=== PATIENT | female | born 1985 | race Caucasian/White ===

== ENCOUNTER 2018-12-17 14:16 | Emergency (ER) | payer OTHER ==
--- OUTSIDE RECORDS SUMMARY | 2018-12-17 14:41 | XMS REPORT | Continuity of Care Document ---
:1985 External Reference #:[id number] Author Name ROSA Mauro Address [address] [place] [address] Care Team Providers Name Role Phone Desiree Montile M.D. Care Team Information Lead Radiation Therapist [phone] Problems Active Problems Provider Date Difficulty speaking Rosa Salazar M.D. Onset: 10/20/2018 Mild persistent asthma Rosa Salazar M.D. Onset: 10/20/2018 Allergic rhinitis Rosa Salazar M.D. Onset: 10/20/2018 Social History Type Date Description Comments Sex Unknown Tobacco Use Start: Unknown End: Quit Unknown Tobacco Use Start: Unknown Heavy tobacco smoker (more than 10 cigarettes/day) Tobacco Use Start: Unknown Never Smoked Cigars Tobacco Use Start: Unknown Never Smoked A Pipe Tobacco Use Start: Unknown Never Used Smokeless Tobacco ETOH Use Rarely consumes alcohol ETOH Use Rarely consumes beer ETOH Use Rarely consumes wine ETOH Use Rarely consumes liquor Tobacco Use Start: Unknown End: Patient is a former smoker Unknown Recreational Drug Use Never Used Drugs Allergies, Adverse Reactions, Alerts Active Allergies Reaction Severity Comments Date Tegretol Urticaria 10/19/2018 Depakote Urticaria 10/19/2018 Phenytoin Urticaria 10/19/2018 Bee Stings Urticaria, Swelling of the general area 10/19/2018 Flexerol nausea 10/20/2018 Medications Active Medications SIG Qnty Indications Ordering Date Provider Levocetirizine 1 by mouth every 30tabs J30.9 Rosa Davis 10/20/2018 Dihydrochloride day Nacho Salazar 5mg Tablets Advair HFA inhale 2 puffs 12gm J45.30 [facility] 10/20/2018 45-21mcg/Act twice a day with Nacho Salazar Aerosol spacer. rinse mouth after use. Aerochamber Plus Son-Vu use as directed 1units J45.30 Rosa Davis 10/20/2018 Nacho Salazar Misc Montelukast Sodium Take One Tablet Unknown 10mg By Mouth AT Tablets Bedtime Ibuprofen prn Unknown 800mg Tablets Ventolin HFA 2 every 4 hours Unknown 108(90Base) as needed mcg/Act Aerosol Medications Administered in Office Medication SIG Qnty Indications Ordering Provider Date Injection Allergy Injection 11/10/2018 Injection Injection Allergy Injection 11/03/2018 Injection Immunizations Description No Information Available Vital Signs Date Vital Result Comment 11/10/2018 2:08pm Height 64 inches 5'4" Weight 265.25 lb Weight 120.317 kg Respiratory Rate 20 /min Heart Rate 84 /min O2 % BldC Oximetry 97 % BP Systolic 121 mmHg BP Diastolic 77 mmHg Asthma Control Test 23 Fractional Exhaled Nitric Oxide 11 BMI (Body Mass Index) 45.5 kg/m2 10/20/2018 9:33am Height 64 inches 5'4" Weight 266.00 lb Weight 120.658 kg Respiratory Rate 20 /min Heart Rate 76 /min O2 % BldC Oximetry 96 % BP Systolic 122 mmHg BP Diastolic 72 mmHg Asthma Control Test 23 Fractional Exhaled Nitric Oxide 13 BMI (Body Mass Index) 45.7 kg/m2 Results Description No Information Available Procedures Date Code Description Status 11/10/2018 43223 Injection Completed 11/10/2018 70704 Nitric Oxide Gas Determination Completed 11/10/2018 62690 Pre PFT Completed 11/03/2018 83665 Injection Completed 10/27/2018 37229 Extract 1-10 Completed 10/20/2018 04401 Nitric Oxide Gas Determination Completed 10/20/2018 09738 Skin Test Scratch # Of Units ____ Completed 10/20/2018 79422 Pulmonary Function Test Completed Medical Devices Description No Information Available Encounters Type Date Location Provider Dx Diagnosis Office Visit 11/10/2018 [facility] Alanna Mauro Encounter for 1:40p [employer] immunization J30.1 Allergic rhinitis due to pollen J30.2 Other seasonal allergic rhinitis J30.81 Allergic rhinitis due to animal (cat) (dog) hair and dander J30.89 Other allergic rhinitis J45.30 Mild persistent asthma, uncomplicated Office Visit 10/20/2018 9:40a [place] [facility] Rosa Davis J30.9 Allergic rhinitisMartin M.D. unspecified J45.30 Mild persistent asthma, uncomplicated R49.0 Dysphonia Assessments Date Code Description Provider 11/10/2018 J30.1 Allergic rhinitis due to pollen Rosa Salazar M.D. 11/10/2018 Z23 Encounter for immunization Etta Uldrich, [employer] 11/10/2018 J30.1 Allergic rhinitis due to pollen Etta Uldrich, [employer] 11/10/2018 J30.2 Other seasonal allergic rhinitis Etta Uldrich, [employer] 11/10/2018 J30.1 Allergic rhinitis due to pollen Allergy Injection 11/10/2018 J30.81 Allergic rhinitis due to animal (cat) (dog) Etta Uldrich, [employer] hair and dander 11/10/2018 J30.2 Other seasonal allergic rhinitis Rosa Salazar M.D. 11/10/2018 J30.89 Other allergic rhinitis Etta Uldrich, [employer] 11/10/2018 J30.2 Other seasonal allergic rhinitis Allergy Injection 11/10/2018 J45.30 Mild persistent asthma, uncomplicated Etta Uldrich, [employer] -C 11/10/2018 J30.81 Allergic rhinitis due to animal (cat) (dog) Rosa Salazar M.D. hair and dander 11/10/2018 J30.81 Allergic rhinitis due to animal (cat) (dog) Allergy Injection hair and dander 11/10/2018 J30.89 Other allergic rhinitis Rosa Salazar M.D. 11/10/2018 J30.89 Other allergic rhinitis Allergy Injection 11/03/2018 J30.1 Allergic rhinitis due to pollen Rosa Salazar M.D. 11/03/2018 J30.1 Allergic rhinitis due to pollen Allergy Injection 11/03/2018 J30.2 Other seasonal allergic rhinitis Rosa Salazar M.D. 11/03/2018 J30.2 Other seasonal allergic rhinitis Allergy Injection 11/03/2018 J30.81 Allergic rhinitis due to animal (cat) (dog) Rosa Salazar M.D. hair and dander 11/03/2018 J30.81 Allergic rhinitis due to animal (cat) (dog) Allergy Injection hair and dander 11/03/2018 J30.89 Other allergic rhinitis Rosa Salazar M.D. 11/03/2018 J30.89 Other allergic rhinitis Allergy Injection 10/27/2018 J30.1 Allergic rhinitis due to pollen Rosa Salazar M.D. 10/27/2018 J30.1 Allergic rhinitis due to pollen Lab 10/27/2018 J30.2 Other seasonal allergic rhinitis Rosa Salazar M.D. 10/27/2018 J30.2 Other seasonal allergic rhinitis Lab 10/27/2018 J30.81 Allergic rhinitis due to animal (cat) (dog) Rosa Salazar M.D. hair and dander 10/27/2018 J30.81 Allergic rhinitis due to animal (cat) (dog) Lab hair and dander 10/27/2018 J30.89 Other allergic rhinitis Rosa Salazar M.D. 10/27/2018 J30.89 Other allergic rhinitis Lab 10/20/2018 J30.9 Allergic rhinitis, unspecified Rosa Salazar M.D. 10/20/2018 J45.30 Mild persistent asthma, uncomplicated Rosa Salazar M.D. 10/20/2018 R49.0 Dysphonia Rosa Salazar M.D. Plan of Treatment Future Appointment(s):03/16/2019 1:20 pm - ROSA Mauro at [facility]12/29/2018 1:30 pm - Allergy Injection at [facility]12/22/2018 1: 30 pm - Allergy Injection at [facility]12/15/2018 1:30 pm - Allergy Injection at [facility]12/08/2018 1:30 pm - Allergy Injection at [facility]12/01/2018 1:30 pm - Allergy Injection at [facility]11/24/2018 1: 30 pm - Allergy Injection at [facility]11/17/2018 1:30 pm - Allergy Injection at [facility]11/10/2018 - ANURAG Mauro-CZ23 Encounter for jurpgpyjdodrR13.1 Allergic rhinitis due to gfkgthT27.2 Other seasonal allergic anbobnkcJ57.81 Allergic rhinitis due to animal (cat) (dog) hair and eewyvsT08.89 Other allergic crwgbiwwJ10.30 Mild persistent asthma, uncomplicatedFollow up:4 monthsRecommendations:Continue all medications as prescribed.Refrain from wearing perfumes/scented colognes while visitingour office. Continue the Advair 2 puffs twice a day Continue the Montelukast 1 daily Try the Pazeo for itchy red eyes 1 drop daily Continue the Levocetirizine 1 daily Continue the Ventolin 2 puffs every 4 hours as needed for cough, shortness of breath, cough, wheezing or chests tightness Continue the allergy shots Discussed the three ways in which allergies are managed: (1) avoidance measures; (2) medications; (3) allergy immunotherapy. Discussed environmental controls. -Dust mite control barriers are recommended for mattress and pillows. Make sure the product specifies a pore size rating of 2-5 microns. Bigger and unspecified pore sizes may not be effective. -Wash all bedding in hot water once weekly. -Keep bedroom humidity below 50%. Dust mites thrive well in high humidity. Hold antihistamines for 72 hours prior to testing. Functional Status Description No Information Available Mental Status Description No Information Available Referrals Description No Information Available
--- OUTSIDE RECORDS SUMMARY | 2018-12-17 14:41 | XMS REPORT | Continuity of Care Document ---
:1985 External Reference #:[id number] Author Name Rosa Salazar M.D. Address [address] [place] [address] Care Team Providers Name Role Phone Desiree Montiel M.D. Care Team Information Business Development Manager [phone] Problems Active Problems Provider Date Difficulty speaking [...] Advair HFA inhale 2 puffs 12gm J45.30 Rosa M 10/20/2018 45-21mcg/Act twice a day with Nacho Salazar Aerosol spacer. rinse mouth after use. Aerochamber Plus Son-Vu use as directed 1units J45.30 Rosa Davis 10/20/2018 Ncaho Salazar Misc Montelukast Sodium Take One Tablet Unknown 10mg By Mouth AT Tablets Bedtime Advair Diskus Unknown 100-50mcg/Dose Aerosol Ibuprofen prn Unknown 800mg Tablets Ventolin HFA 2 every 4 hours Unknown 108(90Base) as needed mcg/Act Aerosol Immunizations Description No Information Available Vital Signs Date Vital Result Comment 10/20/2018 9:33am Height 64 inches 5'4" Weight 586.44 lb Weight 266.008 kg Respiratory Rate 20 /min Heart Rate 76 /min O2 % BldC Oximetry 96 % BP Systolic 122 mmHg BP Diastolic 72 mmHg Asthma Control Test 23 Fractional Exhaled Nitric Oxide 13 BMI (Body Mass Index) 100.7 kg/m2 Results Description No Information Available Procedures Date Code Description Status 10/20/2018 77160 Nitric Oxide Gas Determination Completed 10/20/2018 54552 Skin Test Scratch # Of Units ____ Completed 10/20/2018 86667 Pulmonary Function Test Completed Medical Devices Description No Information Available Encounters Type Date Location Provider Dx Diagnosis Office Visit 10/20/2018 [facility] Rosa Davis J30.9 Allergic rhinitis, 9:40a Nacho Salazar unspecified J45.30 Mild persistent asthma, uncomplicated R49.0 Dysphonia Assessments Date Code Description Provider 10/20/2018 Shayy30.9 Allergic rhinitis, unspecified Rosa Salazar M.D. 10/20/2018 J45.30 Mild persistent asthma, uncomplicated Rosa Salazar M.D. 10/20/2018 R49.0 Dysphonia Rosa Salazar M.D. Plan of Treatment Future Appointment(s):11/10/2018 1:45 pm - Allergy Injection at [facility]11/10/2018 1:40 pm - ROSA Mauro at [facility]11/03/2018 1:30 pm - Allergy Injection at [facility]10/20/2018 - Rosa Salazar M.D.J30.9 Allergic rhinitis, unspecifiedNew Medication:Levocetirizine Dihydrochloride 5 mg - 1 by mouth every dayRecommendations:Prick Skin Test - Seasonal and Environmental Environmental controls reviewed risks/benefits of IT discussed - pt would like to start recommend Levocetirizine 5 mg once a day - take at bedtime recommend Flonase sensimist - OTC - 2 sprays to each nostril once daily continue Singulair 10 mg once tueepB87.30 Mild persistent asthma, uncomplicatedNew Medication:Advair HFA 45-21 mcg/Act - inhale 2 puffs twice a day with spacer. rinse mouth after use.Aerochamber Plus Son-Vu - use as directedRecommendations:Jonathan is normal at 13 Full PFT today Pathophysiology of asthma reviewed Use Albuterol 2 puffs every 4 hours as needed for cough, wheezing shortness of breath or chest tightness OR 15 mins prior to exercise. Call if using >2x/week aside from pre-exercise. continue Advair - change to Advair HFA 45/21 2 puffs twice daily; rinse mouth after use; use with pzoenuK27.0 DysphoniaFollow up:2 weeks, IT and *DISCUSSION: After the evaluation is completed, the results and treatment choices will be explained.Recommendations:recommend ENT evaluation Functional Status Description No Information Available Mental Status Description No Information Available Referrals Description No Information Available
[2018-12-17 15:06] VITALS: BP 121/65
--- NOTE | 2018-12-17 15:57 | UC ---
General HPI - HPI Summary HPI Summary: Per tuck pointer: "Pt fell on Friday landing on left side.(tripped on sidewalk). Left ribs and left arm were hurting initially. Starting to feel better until she stretched this morning and the pain in the ribs became worse. Left arm continues to feel better. It hurts to breathe and hurts to move. " -no bruising. no palp, no chest pain. - History of Current Complaint Chief Complaint: UCGeneralIllness Stated Complaint: S/P FALL-RIB PAIN Time Seen by Provider: 12/17/18 15:55 Hx Last Menstrual Period: end november Pain Intensity: 7 - Allergy/Home Medications Allergies/Adverse Reactions: Allergies Allergy/AdvReac Type Severity Reaction Status Date / Time carbamazepine [From Tegretol] Allergy Hives Verified 12/17/18 15:07 cyclobenzaprine Allergy GI Upset Verified 12/17/18 15:07 [From Flexeril] divalproex sodium Allergy Hives Verified 12/17/18 15:07 [From Depakote] phenytoin [From Dilantin] Allergy Hives Verified 12/17/18 15:07 Home Medications: Home Medications Fluticas/Salmet 45/21 (NF) [Advair HFA 45/21 (NF)] 2 puff INH BID 12/17/18 [ History Confirmed 12/17/18] Montelukast Sodium TAB* [Singulair 5 mg TAB*] 5 mg PO DAILY 12/17/18 [History Confirmed 12/17/18] PMH/Surg Hx/FS Hx/Imm Hx Previously Healthy: Yes Respiratory History: Asthma - Surgical History Surgical History: None - Family History Known Family History: Positive: Diabetes - Social History Alcohol Use: None Substance Use Type: None Smoking Status (MU): Former Smoker When Did the Patient Quit Smoking/Using Tobacco: 2008 Review of Systems All Other Systems Reviewed And Are Negative: Yes Constitutional: Positive: Negative Skin: Negative: Bruising Eyes: Positive: Negative ENT: Positive: Negative Respiratory: Negative: Shortness Of Breath, Cough Cardiovascular: Positive: Negative. Negative: Palpitations Gastrointestinal: Positive: Negative Genitourinary: Positive: Negative Motor: Positive: Negative Neurovascular: Positive: Negative Musculoskeletal: Positive: Other: Neurological: Positive: Negative Psychological: Positive: Negative Is Patient Immunocompromised?: No Physical Exam Triage Information Reviewed: Yes Appearance: Well-Appearing, No Pain Distress, Well-Nourished Vital Signs: Initial Vital Signs Temp 98.5 F 12/17/18 15:00 Pulse 66 12/17/18 15:00 Resp 18 12/17/18 15:00 BP 121/65 12/17/18 15:00 Pulse Ox 99 12/17/18 15:00 Eye Exam: Normal ENT Exam: Normal ENT: Positive: Pharynx normal Dental Exam: Normal Neck exam: Normal Neck: Positive: Supple, Nontender, No Lymphadenopathy Respiratory Exam: Normal Respiratory: Positive: Lungs clear, Normal breath sounds, No respiratory distress, No accessory muscle use. Negative: Crackles, Rhonchi, Stridor, Wheezing Cardiovascular Exam: Normal Cardiovascular: Positive: RRR, No Murmur, Pulses Normal, Other: - left axillary line w/ only mild tenderness. no bruising. good breath sounds in all areas of pain. trachea midline. Abdominal Exam: Normal Abdomen Description: Positive: Nontender, Soft Musculoskeletal Exam: Normal Musculoskeletal: Positive: Other: - see above Neurological Exam: Normal Psychological Exam: Normal Skin Exam: Normal Skin: Negative: Rashes, Breakdown, Significant Lesion(s) Course/Dx - Course Course Of Treatment: left rib xrays and PA - neg fpr frx. - Differential Dx - Multi-Symptom Differential Diagnoses: Other - rib fracture, contussion - Diagnoses Provider Diagnosis: Contusion of rib on left side Discharge ED - Sign-Out/Discharge Documenting (check all that apply): Patient Departure All imaging exams completed and their final reports reviewed: No Studies - Discharge Plan Condition: Stable Disposition: HOME Patient Education Materials: Rib Contusion (ED) Referrals: Desiree Montiel MD [Primary Care Provider] - Additional Instructions: The xray report does not show any fractures in your ribs. Rest, ibuprofen and heat will be helpful. Avoid stretching movements. - Billing Disposition and Condition Condition: STABLE Disposition: Home
== END 2018-12-17 17:01 | disposition home or self-care (01) ==
LOC: UCCORT 14:16
DX: S20.20XA Contusion of thorax, unspecified, initial encounter (principal); W01.0XXA Fall on same level from slipping, tripping and stumbling without subsequent striking against object, initial encounter; Y92.480 Sidewalk as the place of occurrence of the external cause; J45.909 Unspecified asthma, uncomplicated; Z88.8 Allergy status to other drugs, medicaments and biological substances; Z87.891 Personal history of nicotine dependence
CPT/HCPCS: 99211; G0463

== ENCOUNTER 2019-04-17 12:20 | Emergency (ER) | payer OTHER ==
--- OUTSIDE RECORDS SUMMARY | 2019-04-17 12:25 | XMS REPORT | Continuity of Care Document ---
:1985 External Reference #:[id number] Author Name ROSA Mauro (transmitted by agent of provider Rosa Salazar) Address [address] [place] [address] Care Team Providers Name Role Phone Desiree Montiel M.D. 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 [phone] Problems Active Problems Provider Date Difficulty speaking [...] Medications SIG Qnty Indications Ordering Date Provider Nemo Oliveira 1 puff once 1units Etta 11/10/2018 100-25mcg/Inh daily ROSA Gudino Aerosol Levocetirizine 1 by mouth every 30tabs J30.9 Rosa Davis 10/20/2018 Dihydrochloride day Nacho Salazar 5mg Tablets Advair HFA Inhale Two Puffs 12units J45.30 Etta 10/20/2018 45-21mcg/Act By Mouth Twice A ANURAG Gudino-C Aerosol Day With Spacer, Rinse Mouth After Use Aerochamber Plus Son-Vu use as directed 1un J45.30 Rosa Ryan 10/20/2018 Nacho Salazar Misc Montelukast Sodium Take One Tablet Unknown 10mg By Mouth AT Tablets Bedtime Ibuprofen prn Unknown 800mg Tablets Ventolin HFA 2 every 4 hours Unknown 108(90Base) as needed mcg/Act Aerosol Medications Administered in Office Medication SIG Qnty Indications Ordering Provider Date Injection Allergy Injection 03/16/2019 Injection Injection Allergy Injection 03/09/2019 Injection Injection Allergy Injection 03/02/2019 Injection Injection Allergy Injection 02/23/2019 Injection Injection Allergy Injection 02/16/2019 Injection Injection Allergy Injection 02/09/2019 Injection Injection Allergy Injection 02/02/2019 Injection Injection Allergy Injection 01/19/2019 Injection Injection Allergy Injection 01/12/2019 Injection Injection Allergy Injection 01/05/2019 Injection Injection Allergy Injection 12/29/2018 Injection Injection Allergy Injection 12/22/2018 Injection Injection Allergy Injection 12/15/2018 Injection Injection Allergy Injection 12/08/2018 Injection Injection Allergy Injection 12/01/2018 Injection Injection Allergy Injection 11/24/2018 Injection Injection Allergy Injection 11/17/2018 Injection Injection Allergy Injection 11/10/2018 Injection Injection Allergy Injection 11/03/2018 Injection Immunizations Description No Information Available Vital Signs Date Vital Result Comment 03/16/2019 1:15pm Height 64 inches 5'4" Weight 278.00 lb Weight 126.101 kg Respiratory Rate 16 /min Heart Rate 90 /min O2 % BldC Oximetry 97 % BP Systolic 107 mmHg BP Diastolic 63 mmHg Asthma Control Test 23 Fractional Exhaled Nitric Oxide 11 BMI (Body Mass Index) 47.7 kg/m2 11/10/2018 2:08pm Height 64 inches 5'4" Weight 265.25 lb Weight 120.317 kg Respiratory Rate 20 /min Heart Rate 84 /min O2 % BldC Oximetry 97 % BP Systolic 121 mmHg BP Diastolic 77 mmHg Asthma Control Test 23 Fractional Exhaled Nitric Oxide 11 BMI (Body Mass Index) 45.5 kg/m2 Results Description No Information Available Procedures Date Code Description Status 03/16/2019 90738 Injection Completed 03/16/2019 28582 Nitric Oxide Gas Determination Completed 03/09/2019 53399 Injection Completed 03/02/2019 27558 Injection Completed 02/23/2019 06905 Injection Completed 02/16/2019 83033 Injection Completed 02/09/2019 44165 Injection Completed 02/02/2019 10629 Injection Completed 01/19/2019 39995 Injection Completed 01/12/2019 15237 Extract 1-10 Completed 01/12/2019 74128 Injection Completed 01/05/2019 65701 Injection Completed 12/29/2018 50525 Injection Completed 12/22/2018 96227 Injection Completed 12/15/2018 79695 Injection Completed 12/08/2018 71477 Injection Completed 12/01/2018 91170 Injection Completed 11/24/2018 15797 Injection Completed 11/17/2018 89841 Injection Completed 11/10/2018 77864 Injection Completed 11/10/2018 52359 Nitric Oxide Gas Determination Completed 11/10/2018 31362 Nitric Oxide Gas Determination Completed 11/10/2018 44149 Pre PFT Completed 11/03/2018 94078 Injection Completed 10/27/2018 70903 Extract 1-10 Completed 10/20/2018 87336 Nitric Oxide Gas Determination Completed 10/20/2018 13503 Skin Test Scratch # Of Units ____ Completed 10/20/2018 20511 Pulmonary Function Test Completed Medical Devices Description No Information Available Encounters Type Date Location Provider Dx Diagnosis Office Visit 03/16/2019 [facility] Alanna Mauro Encounter for 1:20p [employer]-C immunization J30.1 Allergic rhinitis due to pollen J30.2 Other seasonal allergic rhinitis J30.81 Allergic rhinitis due to animal (cat) (dog) hair and dander J30.89 Other allergic rhinitis J45.30 Mild persistent asthma, uncomplicated R04.0 Epistaxis Office Visit 11/10/2018 1:40p [facility] Etta Mondragon Encounter for Uldrich, [employer]-C immunization J30.1 Allergic rhinitis due to pollen J30.2 Other seasonal allergic rhinitis J30.81 Allergic rhinitis due to animal (cat) (dog) hair and dander J30.89 Other allergic rhinitis J45.30 Mild persistent asthma, uncomplicated Office Visit 10/20/2018 9:40a [facility] Rosa Davis J30.9 Allergic rhinitis, Nacho Salazar unspecified J45.30 Mild persistent asthma, uncomplicated R49.0 Dysphonia Assessments Date Code Description Provider 03/16/2019 Z23 Encounter for immunization Rosa Salazar M.D. 03/16/2019 J30.1 Allergic rhinitis due to pollen Rosa Salazar M.D. 03/16/2019 J30.1 Allergic rhinitis due to pollen Rosa Salazar M.D. 03/16/2019 Z23 Encounter for immunization Ettavesta Gudino, [employer]-C 03/16/2019 J30.2 Other seasonal allergic rhinitis Rosa Salazar M.D. 03/16/2019 J30.1 Allergic rhinitis due to pollen Allergy Injection 03/16/2019 J30.81 Allergic rhinitis due to animal (cat) (dog) Rosa Salazar M.D. hair and dander 03/16/2019 J30.2 Other seasonal allergic rhinitis Rosa Salazar M.D. 03/16/2019 J30.89 Other allergic rhinitis Rosa Salazar M.D. 03/16/2019 J30.1 Allergic rhinitis due to pollen Etta Ulich, [employer]-C 03/16/2019 J45.30 Mild persistent asthma, uncomplicated Rosa Salazar M.D. 03/16/2019 J30.2 Other seasonal allergic rhinitis Allergy Injection 03/16/2019 R04.0 Epistaxis Rosa Salazar M.D. 03/16/2019 J30.81 Allergic rhinitis due to animal (cat) (dog) Rosa Salazar M.D. hair and dander 03/16/2019 J30.2 Other seasonal allergic rhinitis Etta Uldrich, [employer]-C 03/16/2019 J30.81 Allergic rhinitis due to animal (cat) (dog) Allergy Injection hair and dander 03/16/2019 J30.89 Other allergic rhinitis Rosa Salazar M.D. 03/16/2019 J30.81 Allergic rhinitis due to animal (cat) (dog) Etta Uldrich, [employer]-C hair and dander 03/16/2019 J30.89 Other allergic rhinitis Allergy Injection 03/16/2019 J30.89 Other allergic rhinitis Etta Shahab, [facility] 03/16/2019 J45.30 Mild persistent asthma, uncomplicated Etta Shahab, [facility] 03/16/2019 R04.0 Epistaxis Ettajaclyn Gudino, [facility] 03/09/2019 J30.1 Allergic rhinitis due to pollen Rosa Salazar M.D. 03/09/2019 J30.1 Allergic rhinitis due to pollen Allergy Injection 03/09/2019 J30.2 Other seasonal allergic rhinitis Rosa Salazar M.D. 03/09/2019 J30.2 Other seasonal allergic rhinitis Allergy Injection 03/09/2019 J30.81 Allergic rhinitis due to animal (cat) (dog) Rosa Salazar M.D. hair and dander 03/09/2019 J30.81 Allergic rhinitis due to animal (cat) (dog) Allergy Injection hair and dander 03/09/2019 J30.89 Other allergic rhinitis Rosa Salzaar M.D. 03/09/2019 J30.89 Other allergic rhinitis Allergy Injection 03/02/2019 J30.1 Allergic rhinitis due to pollen Rosa Salazar M.D. 03/02/2019 J30.1 Allergic rhinitis due to pollen Allergy Injection 03/02/2019 J30.2 Other seasonal allergic rhinitis Rosa Salazar M.D. 03/02/2019 J30.2 Other seasonal allergic rhinitis Allergy Injection 03/02/2019 J30.81 Allergic rhinitis due to animal (cat) (dog) Rosa Salazar M.D. hair and dander 03/02/2019 J30.81 Allergic rhinitis due to animal (cat) (dog) Allergy Injection hair and dander 03/02/2019 J30.89 Other allergic rhinitis Rosa Salazar M.D. 03/02/2019 J30.89 Other allergic rhinitis Allergy Injection 02/23/2019 J30.1 Allergic rhinitis due to pollen Rosa Salazar M.D. 02/23/2019 J30.1 Allergic rhinitis due to pollen Allergy Injection 02/23/2019 J30.2 Other seasonal allergic rhinitis Rosa Salazar M.D. 02/23/2019 J30.2 Other seasonal allergic rhinitis Allergy Injection 02/23/2019 J30.81 Allergic rhinitis due to animal (cat) (dog) Rosa Salazar M.D. hair and dander 02/23/2019 J30.81 Allergic rhinitis due to animal (cat) (dog) Allergy Injection hair and dander 02/23/2019 J30.89 Other allergic rhinitis Rosa Salazar M.D. 02/23/2019 J30.89 Other allergic rhinitis Allergy Injection 02/16/2019 J30.1 Allergic rhinitis due to pollen Rosa Salazar M.D. 02/16/2019 J30.1 Allergic rhinitis due to pollen Allergy Injection 02/16/2019 J30.2 Other seasonal allergic rhinitis Rosa Salazar M.D. 02/16/2019 J30.2 Other seasonal allergic rhinitis Allergy Injection 02/16/2019 J30.81 Allergic rhinitis due to animal (cat) (dog) Rosa Salazar M.D. hair and dander 02/16/2019 J30.81 Allergic rhinitis due to animal (cat) (dog) Allergy Injection hair and dander 02/16/2019 J30.89 Other allergic rhinitis Rosa Salazar M.D. 02/16/2019 J30.89 Other allergic rhinitis Allergy Injection 02/09/2019 J30.1 Allergic rhinitis due to pollen Rosa Salazar M.D. 02/09/2019 J30.1 Allergic rhinitis due to pollen Allergy Injection 02/09/2019 J30.2 Other seasonal allergic rhinitis Rosa Salazar M.D. 02/09/2019 J30.2 Other seasonal allergic rhinitis Allergy Injection 02/09/2019 J30.81 Allergic rhinitis due to animal (cat) (dog) Rosa Salazar M.D. hair and dander 02/09/2019 J30.81 Allergic rhinitis due to animal (cat) (dog) Allergy Injection hair and dander 02/09/2019 J30.89 Other allergic rhinitis Rosa Salazar M.D. 02/09/2019 J30.89 Other allergic rhinitis Allergy Injection 02/02/2019 J30.1 Allergic rhinitis due to pollen Rosa Salazar M.D. 02/02/2019 J30.1 Allergic rhinitis due to pollen Allergy Injection 02/02/2019 J30.2 Other seasonal allergic rhinitis Rosa Salazar M.D. 02/02/2019 J30.2 Other seasonal allergic rhinitis Allergy Injection 02/02/2019 J30.81 Allergic rhinitis due to animal (cat) (dog) Rosa Salazar M.D. hair and dander 02/02/2019 J30.81 Allergic rhinitis due to animal (cat) (dog) Allergy Injection hair and dander 02/02/2019 J30.89 Other allergic rhinitis Rosa Salazar M.D. 02/02/2019 J30.89 Other allergic rhinitis Allergy Injection 01/19/2019 J30.1 Allergic rhinitis due to pollen Rosa Salazar M.D. 01/19/2019 J30.1 Allergic rhinitis due to pollen Allergy Injection 01/19/2019 J30.2 Other seasonal allergic rhinitis Rosa Salazar M.D. 01/19/2019 J30.2 Other seasonal allergic rhinitis Allergy Injection 01/19/2019 J30.81 Allergic rhinitis due to animal (cat) (dog) Rosa Salazar M.D. hair and dander 01/19/2019 J30.81 Allergic rhinitis due to animal (cat) (dog) Allergy Injection hair and dander 01/19/2019 J30.89 Other allergic rhinitis Rosa Salazar M.D. 01/19/2019 J30.89 Other allergic rhinitis Allergy Injection 01/12/2019 J30.1 Allergic rhinitis due to pollen Rosa Salazar M.D. 01/12/2019 J30.1 Allergic rhinitis due to pollen Rosa Salazar M.D. 01/12/2019 J30.2 Other seasonal allergic rhinitis Rosa Salazar M.D. 01/12/2019 J30.1 Allergic rhinitis due to pollen Allergy Injection 01/12/2019 J30.81 Allergic rhinitis due to animal (cat) (dog) Rosa Salazar M.D. hair and dander 01/12/2019 J30.2 Other seasonal allergic rhinitis Rosa Salazar M.D. 01/12/2019 J30.89 Other allergic rhinitis Rosa Salazar M.D. 01/12/2019 J30.2 Other seasonal allergic rhinitis Allergy Injection 01/12/2019 J30.81 Allergic rhinitis due to animal (cat) (dog) Rosa Salazar M.D. hair and dander 01/12/2019 J30.81 Allergic rhinitis due to animal (cat) (dog) Allergy Injection hair and dander 01/12/2019 J30.89 Other allergic rhinitis Rosa Salazar M.D. 01/12/2019 J30.89 Other allergic rhinitis Allergy Injection 01/05/2019 J30.1 Allergic rhinitis due to pollen Rosa Salazar M.D. 01/05/2019 J30.1 Allergic rhinitis due to pollen Allergy Injection 01/05/2019 J30.2 Other seasonal allergic rhinitis Rosa Salazar M.D. 01/05/2019 J30.2 Other seasonal allergic rhinitis Allergy Injection 01/05/2019 J30.81 Allergic rhinitis due to animal (cat) (dog) Rosa Salazar M.D. hair and dander 01/05/2019 J30.81 Allergic rhinitis due to animal (cat) (dog) Allergy Injection hair and dander 01/05/2019 J30.89 Other allergic rhinitis Rosa Salazar M.D. 01/05/2019 J30.89 Other allergic rhinitis Allergy Injection 12/29/2018 J30.1 Allergic rhinitis due to pollen Rosa Salazar M.D. 12/29/2018 J30.1 Allergic rhinitis due to pollen Allergy Injection 12/29/2018 J30.2 Other seasonal allergic rhinitis Rosa Salazar M.D. 12/29/2018 J30.2 Other seasonal allergic rhinitis Allergy Injection 12/29/2018 J30.81 Allergic rhinitis due to animal (cat) (dog) Rosa Salazar M.D. hair and dander 12/29/2018 J30.81 Allergic rhinitis due to animal (cat) (dog) Allergy Injection hair and dander 12/29/2018 J30.89 Other allergic rhinitis Rosa Salazar M.D. 12/29/2018 J30.89 Other allergic rhinitis Allergy Injection 12/22/2018 J30.1 Allergic rhinitis due to pollen Rosa Salazar M.D. 12/22/2018 J30.1 Allergic rhinitis due to pollen Allergy Injection 12/22/2018 J30.2 Other seasonal allergic rhinitis Rosa Salazar M.D. 12/22/2018 J30.2 Other seasonal allergic rhinitis Allergy Injection 12/22/2018 J30.81 Allergic rhinitis due to animal (cat) (dog) Rosa Salazar M.D. hair and dander 12/22/2018 J30.81 Allergic rhinitis due to animal (cat) (dog) Allergy Injection hair and dander 12/22/2018 J30.89 Other allergic rhinitis Rosa Salazar M.D. 12/22/2018 J30.89 Other allergic rhinitis Allergy Injection 12/15/2018 J30.1 Allergic rhinitis due to pollen Rosa Salazar M.D. 12/15/2018 J30.1 Allergic rhinitis due to pollen Allergy Injection 12/15/2018 J30.2 Other seasonal allergic rhinitis Rosa Salazar M.D. 12/15/2018 J30.2 Other seasonal allergic rhinitis Allergy Injection 12/15/2018 J30.81 Allergic rhinitis due to animal (cat) (dog) Rosa Salazar M.D. hair and dander 12/15/2018 J30.81 Allergic rhinitis due to animal (cat) (dog) Allergy Injection hair and dander 12/15/2018 J30.89 Other allergic rhinitis Rosa Salazar M.D. 12/15/2018 J30.89 Other allergic rhinitis Allergy Injection 12/08/2018 J30.1 Allergic rhinitis due to pollen Rosa Salazar M.D. 12/08/2018 J30.1 Allergic rhinitis due to pollen Allergy Injection 12/08/2018 J30.2 Other seasonal allergic rhinitis Rosa Salazar M.D. 12/08/2018 J30.2 Other seasonal allergic rhinitis Allergy Injection 12/08/2018 J30.81 Allergic rhinitis due to animal (cat) (dog) Rosa Salazar M.D. hair and dander 12/08/2018 J30.81 Allergic rhinitis due to animal (cat) (dog) Allergy Injection hair and dander 12/08/2018 J30.89 Other allergic rhinitis Rosa Salazar M.D. 12/08/2018 J30.89 Other allergic rhinitis Allergy Injection 12/01/2018 J30.1 Allergic rhinitis due to pollen Rosa Salazar M.D. 12/01/2018 J30.1 Allergic rhinitis due to pollen Allergy Injection 12/01/2018 J30.2 Other seasonal allergic rhinitis Rosa Salazar M.D. 12/01/2018 J30.2 Other seasonal allergic rhinitis Allergy Injection 12/01/2018 J30.81 Allergic rhinitis due to animal (cat) (dog) Rosa Salazar M.D. hair and dander 12/01/2018 J30.81 Allergic rhinitis due to animal (cat) (dog) Allergy Injection hair and dander 12/01/2018 J30.89 Other allergic rhinitis Rosa Salazar M.D. 12/01/2018 J30.89 Other allergic rhinitis Allergy Injection 11/24/2018 J30.1 Allergic rhinitis due to pollen Rosa Salazar M.D. 11/24/2018 J30.1 Allergic rhinitis due to pollen Allergy Injection 11/24/2018 J30.2 Other seasonal allergic rhinitis Rosa Salazar M.D. 11/24/2018 J30.2 Other seasonal allergic rhinitis Allergy Injection 11/24/2018 J30.81 Allergic rhinitis due to animal (cat) (dog) Rosa Salazar M.D. hair and dander 11/24/2018 J30.81 Allergic rhinitis due to animal (cat) (dog) Allergy Injection hair and dander 11/24/2018 J30.89 Other allergic rhinitis Rosa Salazar M.D. 11/24/2018 J30.89 Other allergic rhinitis Allergy Injection 11/17/2018 J30.1 Allergic rhinitis due to pollen Rosa Salazar M.D. 11/17/2018 J30.1 Allergic rhinitis due to pollen Allergy Injection 11/17/2018 J30.2 Other seasonal allergic rhinitis Rosa Salazar M.D. 11/17/2018 J30.2 Other seasonal allergic rhinitis Allergy Injection 11/17/2018 J30.81 Allergic rhinitis due to animal (cat) (dog) Rosa Salazar M.D. hair and dander 11/17/2018 J30.81 Allergic rhinitis due to animal (cat) (dog) Allergy Injection hair and dander 11/17/2018 J30.89 Other allergic rhinitis Rosa Salazar M.D. 11/17/2018 J30.89 Other allergic rhinitis Allergy Injection 11/10/2018 Z23 Encounter for immunization Percy Richardson M.D. 11/10/2018 J30.1 Allergic rhinitis due to pollen Rosa Salazar M.D. 11/10/2018 Z23 Encounter for immunization Etta Gudino, [employer]-C 11/10/2018 J30.1 Allergic rhinitis due to pollen Percy Richardson M.D. 11/10/2018 J30.1 Allergic rhinitis due to pollen Etta Shahab, [employer]-C 11/10/2018 J30.2 Other seasonal allergic rhinitis Percy Richardson M.D. 11/10/2018 J30.2 Other seasonal allergic rhinitis Etta Ultana, [employer]-C 11/10/2018 J30.1 Allergic rhinitis due to pollen Allergy Injection 11/10/2018 J30.81 Allergic rhinitis due to animal (cat) (dog) Percy Richardson M.D. hair and dander 11/10/2018 J30.81 Allergic rhinitis due to animal (cat) (dog) Ettavesta Gudino, [facility] hair and dander 11/10/2018 J30.2 Other seasonal allergic rhinitis Rosa Salazar M.D. 11/10/2018 J30.89 Other allergic rhinitis Percy Richardson M.D. 11/10/2018 J30.89 Other allergic rhinitis Ettavesta Gudino, [employer]-C 11/10/2018 J30.2 Other seasonal allergic rhinitis Allergy Injection 11/10/2018 J45.30 Mild persistent asthma, uncomplicated Percy Richardson M.D. 11/10/2018 J45.30 Mild persistent asthma, uncomplicated Etta Wilitana, [employer] -C 11/10/2018 J30.81 Allergic rhinitis due to [...] Rosa Salazar M.D. Plan of Treatment Future Appointment(s):09/14/2019 1:40 pm - ROSA Mauro at [facility]03/30/2019 1:30 pm - Allergy Injection at [facility]03/23/2019 1: 30 pm - Allergy Injection at [facility] Functional Status Description No Information Available Mental Status Description No Information Available Referrals Description No Information Available
--- OUTSIDE RECORDS SUMMARY | 2019-04-17 12:25 | XMS REPORT | Continuity of Care Document ---
:1985 External Reference #:[id number] Author Name ROSA Mauro Address [address] [place] [address] Care Team Providers Name Role Phone Desiree Montiel M.D. Care Team Information [facility] Assistant Director [phone] Problems Active Problems Provider Date Difficulty speaking [...] 5mg Tablets Advair HFA Inhale Two Puffs 12un J45.30 Etta 10/20/2018 45-21mcg/Act By Mouth Twice A ROSA Gudino Aerosol Day With Spacer, Rinse Mouth After Use Aerochamber Plus Son-Vu use as directed 1un J45.30 Rosa M 10/20/2018 Nacho Salazar Misc Montelukast Sodium Take [...] Available Procedures Date Code Description Status 03/16/2019 98173 Injection Completed 03/16/2019 80008 Nitric Oxide Gas Determination Completed 03/09/2019 04429 Injection Completed 03/02/2019 05425 Injection Completed 02/23/2019 35928 Injection Completed 02/16/2019 04615 Injection Completed 02/09/2019 09230 Injection Completed 02/02/2019 14533 Injection Completed 01/19/2019 33146 Injection Completed 01/12/2019 58823 Extract 1-10 Completed 01/12/2019 94978 Injection Completed 01/05/2019 36756 Injection Completed 12/29/2018 62825 Injection Completed 12/22/2018 92050 Injection Completed 12/15/2018 72766 Injection Completed 12/08/2018 95208 Injection Completed 12/01/2018 07119 Injection Completed 11/24/2018 51555 Injection Completed 11/17/2018 24943 Injection Completed 11/10/2018 21273 Injection Completed 11/10/2018 96310 Nitric Oxide Gas Determination Completed 11/10/2018 69480 Nitric Oxide Gas Determination Completed 11/10/2018 95036 Pre PFT Completed 11/03/2018 43602 Injection Completed 10/27/2018 68317 Extract 1-10 Completed 10/20/2018 42603 Nitric Oxide Gas Determination Completed 10/20/2018 46032 Skin Test Scratch # Of Units ____ Completed 10/20/2018 38163 Pulmonary Function Test Completed Medical Devices Description No Information Available Encounters Type Date Location Provider Dx Diagnosis Office Visit 03/16/2019 [facility] Alanna Mauro Encounter for 1:20p [employer] immunization J30.1 Allergic rhinitis due to pollen J30.2 Other seasonal allergic rhinitis J30.81 Allergic rhinitis due to animal (cat) (dog) hair and dander J30.89 Other allergic rhinitis J45.30 Mild persistent asthma, uncomplicated R04.0 Epistaxis Office Visit 11/10/2018 1:40p [facility] Etta Mondragon Encounter for [place], [employer] immunization J30.1 Allergic rhinitis due to pollen J30.2 Other seasonal allergic rhinitis J30.81 Allergic rhinitis due to animal (cat) (dog) hair and dander J30.89 Other allergic rhinitis J45.30 Mild persistent asthma, uncomplicated Office Visit 10/20/2018 9:40a [facility] Rosa Davis J30.9 Allergic rhinitis, Nacho Salazar unspecified J45.30 Mild persistent asthma, uncomplicated R49.0 Dysphonia Assessments Date Code Description Provider 03/16/2019 J30.1 Allergic rhinitis due to pollen Rosa Salazar M.D. 03/16/2019 Z23 Encounter for immunization Etta Ultana, [employer] 03/16/2019 J30.1 Allergic rhinitis due to pollen Allergy Injection 03/16/2019 J30.2 Other seasonal allergic rhinitis Rosa Salazar M.D. 03/16/2019 J30.1 Allergic rhinitis due to pollen Etta Uldrich, [employer] 03/16/2019 J30.2 Other seasonal allergic rhinitis Allergy Injection 03/16/2019 J30.81 Allergic rhinitis due to animal (cat) (dog) Rosa Salazar M.D. hair and dander 03/16/2019 J30.2 Other seasonal allergic rhinitis Etta Uldrich, [employer] 03/16/2019 J30.81 Allergic rhinitis due to animal (cat) (dog) Allergy Injection hair and dander 03/16/2019 J30.89 Other allergic rhinitis Rosa Salazar M.D. 03/16/2019 J30.81 Allergic rhinitis due to animal (cat) (dog) Etta Uldrich, [employer] hair and dander 03/16/2019 J30.89 Other allergic rhinitis Allergy Injection 03/16/2019 J30.89 Other allergic rhinitis Etta Uldrich, [employer] 03/16/2019 J45.30 Mild persistent asthma, uncomplicated Etta Uldrich, [employer] -C 03/16/2019 R04.0 Epistaxis Etta Uldrich, [employer] 03/09/2019 J30.1 Allergic rhinitis due to pollen [...] dander 03/09/2019 J30.89 Other allergic rhinitis Rosa Salazar M.D. 03/09/2019 J30.89 Other allergic rhinitis Allergy [...] Allergic rhinitis due to animal (cat) (dog) Rsoa Salazar M.D. hair and dander 02/16/2019 J30.81 [...] Injection 12/29/2018 J30.2 Other seasonal allergic rhinitis oRsa Salazar M.D. 12/29/2018 J30.2 Other seasonal allergic [...] Salazar M.D. 11/10/2018 Z23 Encounter for immunization ANURAG Mauro-C 11/10/2018 J30.1 Allergic rhinitis due to pollen Percy Richardson M.D. 11/10/2018 J30.1 Allergic rhinitis due to pollen ANURAG Mauro-C 11/10/2018 J30.2 Other seasonal allergic rhinitis Percy Richardson M.D. 11/10/2018 J30.2 Other seasonal allergic rhinitis ANURAG Mauro-C 11/10/2018 J30.1 Allergic rhinitis due to pollen Allergy Injection 11/10/2018 J30.81 Allergic rhinitis due to animal (cat) (dog) Percy Richardson M.D. hair and dander 11/10/2018 J30.81 Allergic rhinitis due to animal (cat) (dog) DEB MauroP-C hair and dander 11/10/2018 J30.2 Other seasonal allergic rhinitis Rosa Salazar M.D. 11/10/2018 J30.89 Other allergic rhinitis Percy Richardson M.D. 11/10/2018 J30.89 Other allergic rhinitis Etta Gudino [employer] 11/10/2018 J30.2 Other seasonal allergic rhinitis Allergy Injection 11/10/2018 J45.30 Mild persistent asthma, uncomplicated Percy Richardson M.D. 11/10/2018 J45.30 Mild persistent asthma, uncomplicated ANURAG Mauro -C 11/10/2018 J30.81 Allergic rhinitis due to [...] rhinitis due to animal (cat) (dog) Rosa Salaazr M.D. hair and dander 10/27/2018 J30.81 Allergic [...] Appointment(s):09/14/2019 1:40 pm - ROSA Mauro at [facility]03/30/2019 1:30 pm - Allergy Injection at [facility]03/23/2019 1: 30 pm - Allergy Injection at [facility]03/16/2019 - ANURAG Mauro- CZ23 Encounter for hxblkgvgyieiL72.1 Allergic rhinitis due to slcmzrD82.2 Other seasonal allergic bhyyomkhI71.81 Allergic rhinitis due to animal (cat) (dog) hair and ftxsqeN16.89 Other allergic gtvtzdtqC12.30 Mild persistent asthma, pxgamztzqnmjmN37.0 EpistaxisFollow up:6 months with CB and preRecommendations: Continue all medications as prescribed.Refrain from wearing perfumes/scented colognes while visitingour office. Try the Brohard saline saline gel Try the Flonase sensimist 2 sprays daily Continue the Advair 2 puffs twice a day Continue the Montelukast 1 daily Try the Pazeo for itchy red eyes 1 drop daily Continue the Levocetirizine 1 daily Continue the Ventolin 2 puffs every 4 hours as needed forcough, shortness of breath, cough, wheezing or chests tightness Continue the allergy shots CB which looks at inflammation is normal at 11. <25 is normal Functional Status Description No Information Available Mental Status Description No Information Available Referrals Description No Information Available
[2019-04-17 13:05] VITALS: BP 128/77
--- NOTE | 2019-04-17 13:10 | UC ---
Throat Pain/Nasal Jim HPI - HPI Summary HPI Summary: 34yo female presenting with sinus pain/pressure, "sinus headaches," and dry cough x5 days. Patient denies sob and wheezing. Denies fever and chills. Notes night sweats a couple days ago. Denies n/v. States she is using vicks vapor rub and ibuprofen for symptom relief. - History of Current Complaint Chief Complaint: UCRespiratory Stated Complaint: SINUS ISSUES Hx Obtained From: Patient Hx Last Menstrual Period: 2 weeks ago Pain Intensity: 7 Pain Scale Used: 0-10 Numeric - Allergies/Home Medications Allergies/Adverse Reactions: Allergies Allergy/AdvReac Type Severity Reaction Status Date / Time carbamazepine [From Tegretol] Allergy Hives Verified 04/17/19 13:06 cyclobenzaprine Allergy GI Upset Verified 04/17/19 13:06 [From Flexeril] divalproex sodium Allergy Hives Verified 04/17/19 13:06 [From Depakote] phenytoin [From Dilantin] Allergy Hives Verified 04/17/19 13:06 PMH/Surg Hx/FS Hx/Imm Hx - Surgical History Surgical History: None - Family History Known Family History: Positive: Diabetes - Social History Alcohol Use: None Substance Use Type: None Smoking Status (MU): Former Smoker When Did the Patient Quit Smoking/Using Tobacco: 2008 Review of Systems All Other Systems Reviewed And Are Negative: Yes Constitutional: Positive: Other - night sweats. Negative: Fever, Chills Skin: Positive: Negative ENT: Positive: Sinus Congestion, Sinus Pain/Tenderness Respiratory: Positive: Cough. Negative: Shortness Of Breath Cardiovascular: Positive: Negative Gastrointestinal: Positive: Negative Musculoskeletal: Positive: Negative Neurological/Mental Status: Positive: Headache - "sinus headache" Physical Exam - Summary Physical Exam Summary: Vital Signs Reviewed: Yes A+Ox3, no distress Eyes: Conjunctiva Clear ENT: Hearing grossly normal, TM x 2 clear, +nasal congestion, +maxillary sinus tenderness, moist, uvula midline, no exudate, +pharyngeal erythema Neck: Positive: Supple Respiratory: Positive: No respiratory distress, No accessory muscle use + CTA throughout no w/r Cardiovascular: RRR nl s1, s2 no m/r Musculoskeletal Exam: FELICIANO x 4 without difficulty Neurological: Positive: Alert Psychological: Positive: age appropriate behavior Skin: Positive: no rash, no ecchymosis Vital Signs: Initial Vital Signs Temp 98.7 F 04/17/19 13:03 Pulse 84 04/17/19 13:03 Resp 16 04/17/19 13:03 BP 128/77 04/17/19 13:03 Pulse Ox 98 04/17/19 13:03 Lab Results 04/17/19 Range/Units 13:25 Influenza A (Rapid) Negative (Negative) Influenza B (Rapid) Negative (Negative) Throat Pain/Nasal Course/Dx - Course Course Of Treatment: Negative rapid flu. Discussed viral vs bacterial illness and patient prefers to take antibiotic at this time. I treated with augmentin for sinusitis and instructed to continue with symptomatic treatment. Instructed to follow up with pcp if symptoms persist. Patient voiced understanding and agreed with treatment plan. - Differential Dx/Diagnosis Differential Diagnosis/HQI/PQRI: Influenza, Sinusitis, URI Provider Diagnosis: Acute rhinosinusitis, URI with cough and congestion Discharge ED - Sign-Out/Discharge Documenting (check all that apply): Patient Departure All imaging exams completed and their final reports reviewed: No Studies - Discharge Plan Condition: Stable Disposition: HOME Prescriptions: Amoxicillin/Clavulanate TAB* [Augmentin TAB 875*] 875 mg PO BID #14 tab Patient Education Materials: Rhinosinusitis (ED) Referrals: Desiree Montiel MD [Primary Care Provider] - If Needed Additional Instructions: Take Augmentin for treatment of your sinusitis. You may also continue with nasal saline spray and ibuprofen for symptomatic relief. Follow up with your primary care provider if symptoms do not resolve within 7 days. - Billing Disposition and Condition Condition: STABLE Disposition: Home
[2019-04-17 13:37] LABS: Influenza A Molecular Negative (Negative); Influenza B Molecular Negative (Negative)
== END 2019-04-17 13:55 | disposition home or self-care (01) ==
LOC: UCEAST 12:20
DX: J01.90 Acute sinusitis, unspecified (principal); J06.9 Acute upper respiratory infection, unspecified; R05 Cough; R09.81 Nasal congestion; Z87.891 Personal history of nicotine dependence; Z88.8 Allergy status to other drugs, medicaments and biological substances
CPT/HCPCS: 99212; G0463